=== PATIENT | female | born 1975 | race Caucasian/White ===

== ENCOUNTER 2016-09-04 14:55 | Emergency (ER) | payer OTHER ==
[2016-09-04 15:16] VITALS: BP 129/71
[2016-09-04] MEDS ORDERED: Aspirin Low Dose CHEW TAB* 81 MG PO ONE (15:40)
[2016-09-04 16:12] LABS: Hematocrit 40 % (35-47); Hemoglobin 13.7 g/dl (12.0-16.0); Mean Corpuscular HGB Conc 34 g/dl (31-36); Mean Corpuscular Hemoglobin 31 pg (27-31); Mean Corpuscular Volume 92 fL (80-97); Mean Platelet Volume 9 um3 (7.4-10.4); Red Blood Count 4.39 10^6/ul (4.0-5.4); Red Cell Distribution Width 14 % (10.5-15); White Blood Count 12.1 10^3/ul (3.5-10.8)
[2016-09-04 16:28] LABS: Troponin I 0.01 ng/mL (<0.04)
[2016-09-04 16:36] LABS: TSH (Thyroid Stimulating Horm) 1.27 mcIU/mL (0.34-5.60)
[2016-09-04 16:41] LABS: ALT 12 U/L (7-52); AST 12 U/L (13-39); Albumin 4.7 g/dL (3.2-5.2); Alkaline Phosphatase 57 U/L (34-104); Anion Gap 6 mmol/L (2-11); BUN/Creatinine Ratio 12.8 (8-20); Blood Urea Nitrogen 11 mg/dL (6-24); CO2 Carbon Dioxide 23 mmol/L (22-32); Calcium 10.2 mg/dL (8.6-10.3); Chloride 107 mmol/L (101-111); EGFR African American 93.1 (>60); EGFR Non-African American 72.4 (>60); Globulin 3.2 g/dL (2-4); Glucose 139 mg/dL (70-100); Potassium 3.4 mmol/L (3.5-5.0); Sodium 136 mmol/L (133-145); Total Protein 7.9 g/dL (6.4-8.9)
[2016-09-04 17:25] LABS: T4 7.39 g/dL (6.09-12.23)
--- NOTE | 2016-09-04 22:35 | ED ---
Mitul Lay Adam, scribed for Ceferino Brewer MD on 09/04/16 at 1542 . Palpitations / Dysrhythmia - HPI Summary HPI Summary: Pt is a 40 year old female presenting with palpitations and tachycardia. She states that she took her regular dose of methotrexate today (which she has been on for 1 year with no issues) and several minutes later her HR went up and she developed redness on her upper chest. She also c/o abdominal pain. Pt had a similar experience on 08/25 when she took her first shot of Humira and experienced what seemed to be a reaction several minutes later, with tachycardia and palpitations which resolved spontaneously. She did not take Humira today. PMHx of HTN and RA. Negative tobacco use. FMHx of RA, HTN, and CA. EMS notes reviewed; HR went from 111 to 132 BPM. It was 101 BPM upon arrival. - History of Current Complaint Chief Complaint: EDGeneral Hx Obtained From: Patient Onset/Duration: Sudden Onset, Lasting Hours, Still Present Timing: Constant Severity Initially: Moderate Severity Currently: Moderate Character: Fast Aggravating: Medication - Set on after taking methotrexate. Alleviating: Nothing - Allergy/Home Medications Allergies/Adverse Reactions: Allergies Allergy/AdvReac Type Severity Reaction Status Date / Time Sulfamethoxazole Allergy Severe See Comment Verified 05/31/16 19:49 w/Trimethoprim [From Bactrim] Bee stings Allergy Anaphylatic Uncoded 06/10/16 14:58 Shock PMH/Surg Hx/FS Hx/Imm Hx Cardiovascular History: Reports: Hx Hypertension - Surgical History Surgery Procedure, Year, and Place: 3 C-SECT. FINGER JOINT REPLACEMENT. RIGHT KNEE SX. VEIN STRIPPING IN LEFT LEG. Adenoids Infectious Disease History: No Infectious Disease History: Denies: Hx Clostridium Difficile, Hx Hepatitis, Hx Human Immunodeficiency Virus (HIV), Hx of Known/Suspected MRSA, Hx Shingles, Hx Tuberculosis, Hx Known/ Suspected VRE, Hx Known/Suspected VRSA, History Other Infectious Disease, Traveled Outside the [place] in Last 30 Days - Family History Known Family History: Positive: Hypertension, Other - RA, CA - Social History Occupation: Employed Full-time - Homemaker Lives: With Family - Alcohol Use: Rare Hx Substance Use: No Substance Use Type: Reports: None Hx Tobacco Use: No Smoking Status (MU): Never Smoked Tobacco Review of Systems Positive: Palpitations Positive: Abdominal Pain Positive: Rash - Upper chest Positive: Anxious All Other Systems Reviewed And Are Negative: Yes Physical Exam - Summary Physical Exam Summary: General: Alert, pleasant. Neck: Soft, supple, no JVD. HEENT: KANA, no uvula or soft palate swelling. Heart: Tachycardia at 124 BPM. On arrival into room it was 141 BPM. Abdomen: Soft, flat. Calves: Soft, nontender, no pitting edema. Lungs: Clear to auscultation. Neuro: Alert and oriented x3. Psych: Anxious Triage Information Reviewed: Yes Vital Signs On Initial Exam: Initial Vitals Temp Pulse Resp BP Pulse Ox 98.2 F 101 16 129/71 99 09/04/16 15:11 09/04/16 15:11 09/04/16 15:11 09/04/16 15:11 09/04/16 15:11 Vital Signs Reviewed: Yes Diagnostics - Vital Signs Vital Signs Temp Pulse Resp BP Pulse Ox 09/04/16 15:11 98.2 F 101 16 129/71 99 - Laboratory Lab Results: Lab Results 09/04/16 09/04/16 09/04/16 Range/Units 15:50 15:50 15:50 WBC 12.1 H (3.5-10.8) 10^3/ul RBC 4.39 (4.0-5.4) 10^6/ul Hgb 13.7 (12.0-16.0) g/dl Hct 40 (35-47) % MCV 92 (80-97) fL MCH 31 (27-31) pg MCHC 34 (31-36) g/dl RDW 14 (10.5-15) % Plt Count 346 (150-450) 10^3/ul MPV 9 (7.4-10.4) um3 Neut % (Auto) 64.7 (38-83) % Lymph % (Auto) 25.5 (25-47) % Sabine % (Auto) 8.5 (1-9) % Eos % (Auto) 0.8 (0-6) % Baso % (Auto) 0.5 (0-2) % Absolute Neuts (auto) 7.8 H (1.5-7.7) 10^3/ul Absolute Lymphs (auto) 3.1 (1.0-4.8) 10^3/ul Absolute Monos (auto) 1.0 H (0-0.8) 10^3/ul Absolute Eos (auto) 0.1 (0-0.6) 10^3/ul Absolute Basos (auto) 0.1 (0-0.2) 10^3/ul Absolute Nucleated RBC 0 10^3/ul Nucleated RBC % 0 Sodium 136 (133-145) mmol/L Potassium 3.4 L (3.5-5.0) mmol/L Chloride 107 (101-111) mmol/L Carbon Dioxide 23 (22-32) mmol/L Anion Gap 6 (2-11) mmol/L BUN 11 (6-24) mg/dL Creatinine 0.86 (0.51-0.95) mg/dL Est GFR ( Amer) 93.1 (>60) Est GFR (Non-Af Amer) 72.4 (>60) BUN/Creatinine Ratio 12.8 (8-20) Glucose 139 H (70-100) mg/dL Lactic Acid 2.6 H* (0.5-2.0) mmol/L Calcium 10.2 (8.6-10.3) mg/dL Total Bilirubin 0.40 (0.2-1.0) mg/dL AST 12 L (13-39) U/L ALT 12 (7-52) U/L Alkaline Phosphatase 57 (34-104) U/L Troponin I 0.01 (<0.04) ng/mL Total Protein 7.9 (6.4-8.9) g/dL Albumin 4.7 (3.2-5.2) g/dL Globulin 3.2 (2-4) g/dL Albumin/Globulin Ratio 1.5 (1-3) TSH 1.27 (0.34-5.60) mcIU/mL Thyroxine (T4) 7.39 (6.09-12.23) g/dL Beta HCG, Quant < 0.60 mIU/mL Result Diagrams: 09/04/16 15:50 09/04/16 15:50 Lab Statement: Any lab studies that have been ordered have been reviewed, and results considered in the medical decision making process. - EKG 15:20 Cardiac Rate: Tachycardia - 119 BPM EKG Rhythm: Sinus Tachycardia EKG Interpretation: No ST changes - Additional Comments Diagnostic Additional Comments: Troponin I - 0.01 Lactic Acid - 2.6 Course/Dx - Course Assessment/Plan: This is her second episode of feeling flushed, a little nauseous, and having racing heart and tachycardia. Her HR slowly increased and slowly resolved without intervention. I don't believe this is an arrhythmia. There is also no evidence of an allergic reaction such as hives, throat swelling , wheezing, or angioedema. There is a good chance that she is having a side effect potentially to the Humira and then her fear is causing escalation of her symptoms. By simply talking to her for 10 minutes in the room, her HR went from 140 to 108 BPM. Work-up has been normal. We have considered a cardiac event such as ischemia but there were no ischemic equivalents such as discomfort at any time. She has simply been having nausea and feeling flushed without diaphoresis. I believe she is safe for discharge. She will talk to her doctors about whether or not Humira should be continued. - Diagnoses Provider Diagnoses: Tachycardia Discharge - Discharge Plan Condition: Good Disposition: HOME Patient Education Materials: Atrial Tachycardia (ED) Referrals: DYLAN Ramos [Primary Care Provider] - The documentation as recorded by the Mitul casas Adam accurately reflects the service I personally performed and the decisions made by me, Ceferino Brewer MD.
== END 2016-09-04 17:41 | disposition home or self-care (01) ==
LOC: ED 14:55
DX: R00.2 Palpitations (principal); R00.0 Tachycardia, unspecified; R10.9 Unspecified abdominal pain; R21 Rash and other nonspecific skin eruption
CPT/HCPCS: 36415; 80053; 83605; 84436; 84443; 84484; 84702; 85025; 93005; 99284; A9270-GY

== ENCOUNTER 2017-04-03 14:54 | Emergency (ER) | payer OTHER ==
[2017-04-03] MEDS ORDERED: methylPREDNISolone 125 MG* 2 ML VIAL IV ONE (15:52)
[2017-04-03] MEDS ORDERED: Famotidine IV* 10 MG/ML 2 ML (20 mg) IV SLOW PU ONE (15:52)
[2017-04-03 18:04] VITALS: BP 156/82
--- NOTE | 2017-04-04 12:23 | ED ---
Young Lay Nikita, scribed for Brad Gonzalez MD on 04/03/17 at 1534 . Allergic Reaction/Systemic - HPI Summary HPI Summary: Pt is a 41 y/o F BIBA who presents to ED c/o allergic reaction s/p bee/wasp sting. At approximately 1400 today she was stung in the L index finger. After sting, pts skin became erythematous, described as "blotching" up her LUE. 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 Currently, pt reports the erythema is resolved. Additionally c/o feeling anxious. Prior reactions to strings consisted of becoming "blotchy." - History of Current Complaint Chief Complaint: EDAllergicReaction Time Seen by Provider: 04/03/17 15:00 Hx Obtained From: Patient Hx Last Menstrual Period: 05/22/16 Onset/Duration: Started hours ago Severity Currently: None Pain Intensity: 0 Pain Scale Used: 0-10 Numeric Location: Discrete @ - LUE Character: Hives - Erythematous "blotching" Aggravating Factor(s): Nothing Alleviating Factor(s): Antihistamines - 125 mg Benadryl, Epinephrine Associated Signs And Symptoms: Positive: Other: - Anxiety - Allergies/Home Medications Allergies/Adverse Reactions: Allergies Allergy/AdvReac Type Severity Reaction Status Date / Time Sulfamethoxazole Allergy Severe See Comment Verified 05/31/16 19:49 w/Trimethoprim [From Bactrim] Bee stings Allergy Anaphylatic Uncoded 06/10/16 14:58 Shock PMH/Surg Hx/FS Hx/Imm Hx Cardiovascular History: Reports: Hx Hypertension Musculoskeletal History: Reports: Hx Rheumatoid Arthritis - Surgical History Surgery Procedure, Year, and Place: 3 C-SECT. FINGER JOINT REPLACEMENT. RIGHT KNEE SX. VEIN STRIPPING IN LEFT LEG. Adenoids Infectious Disease History: Yes Infectious Disease History: Denies: Hx Clostridium Difficile, Hx Hepatitis, Hx Human Immunodeficiency Virus (HIV), Hx of Known/Suspected MRSA, Hx Shingles, Hx Tuberculosis, Hx Known/ Suspected VRE, Hx Known/Suspected VRSA, History Other Infectious Disease, Traveled Outside the [place] in Last 30 Days - Family History Known Family History: Positive: Hypertension, Other - RA, CA - Social History Alcohol Use: Rare Hx Substance Use: No Substance Use Type: Reports: None Hx Tobacco Use: No Smoking Status (MU): Never Smoked Tobacco Review of Systems Positive: Other - LUE erythema described as "blotching" - resolved Positive: Anxious All Other Systems Reviewed And Are Negative: Yes Physical Exam Triage Information Reviewed: Yes Vital Signs On Initial Exam: Initial Vitals Temp Pulse Resp BP Pulse Ox 99.4 F 87 17 167/87 100 04/03/17 15:05 04/03/17 15:05 04/03/17 15:05 04/03/17 15:05 04/03/17 15:05 Vital Signs Reviewed: Yes Appearance: Positive: Well-Appearing, No Pain Distress Skin: Positive: Warm, Dry, Other - Slightly flushed Head/Face: Positive: Normal Head/Face Inspection Eyes: Positive: Normal ENT: Positive: Normal ENT inspection Neck: Positive: Supple, Nontender Respiratory/Lung Sounds: Positive: Clear to Auscultation, Breath Sounds Present Cardiovascular: Positive: RRR Abdomen Description: Positive: Nontender, Soft Bowel Sounds: Positive: Present Musculoskeletal: Positive: Other - Slightly tremulous Neurological: Positive: Normal Psychiatric: Positive: Normal, Affect/Mood Appropriate Diagnostics - Vital Signs Vital Signs Temp Pulse Resp BP Pulse Ox 04/03/17 15:05 99.4 F 87 17 167/87 100 - Laboratory Lab Statement: Any lab studies that have been ordered have been reviewed, and results considered in the medical decision making process. Re-Evaluation - Re-Evaluation First Eval Re-Evaluation Time: 17:44 Change: Improved Allergic Reaction Course/Dx - Course Course Of Treatment: Ms. Patel presented with urticaria after a bee sting and was treated and observed with continued improvement. - Diagnoses Provider Diagnoses: Allergic reaction Discharge - Discharge Plan Condition: Stable Disposition: HOME Patient Education Materials: General Allergic Reaction (ED) Referrals: DYLAN Ramos [Primary Care Provider] - 3 Days Additional Instructions: Return to ED immediately for any returning or worsening symptoms. The documentation as recorded by the Young casas Nikita accurately reflects the service I personally performed and the decisions made by Carlos qiu Richard L, MD.
== END 2017-04-03 18:03 | disposition home or self-care (01) ==
LOC: ED 14:54
DX: F41.9 Anxiety disorder, unspecified (principal); T78.40XA Allergy, unspecified, initial encounter; X58.XXXA Exposure to other specified factors, initial encounter; Y92.9 Unspecified place or not applicable; Z86.79 Personal history of other diseases of the circulatory system
CPT/HCPCS: 96374; 96375; 99283; J2930

== ENCOUNTER 2018-03-11 18:35 | Emergency (ER) | payer OTHER ==
[2018-03-11 18:54] VITALS: BP 159/95
[2018-03-11] MEDS ORDERED: Ketorolac INJ* 30 MG/ML 1 ML VIAL IM ONE (19:25)
--- NOTE | 2018-03-11 19:27 | ED ---
Neck Pain - HPI Summary HPI Summary: 42-year-old female presents with neck pain for the past week. She states she slept wrong and woke up with the pain. She states that it seemed be doing better but yesterday became worse. She states it is only located on the left neck. She states it seems to radiate to her left ear. She denies any change in hearing. She denies any weakness. No numbness or tingling. No midline tenderness. She denies any history of neck pain. She denies any fevers. No recent illness. No headache. She tried some Aleve with relief. Medical conditions have high blood pressure. - History of Current Complaint Chief Complaint: UCUpperExtremity Stated Complaint: NECK PAIN Time Seen by Provider: 03/11/18 19:12 Hx Last Menstrual Period: 02/23/18 Pain Intensity: 8 - Allergies/Home Medications Allergies/Adverse Reactions: Allergies Allergy/AdvReac Type Severity Reaction Status Date / Time sulfamethoxazole Allergy Altered Verified 03/11/18 18:54 [From Bactrim] Mental Status trimethoprim [From Bactrim] Allergy Altered Verified 03/11/18 18:54 Mental Status Bee stings Allergy Anaphylatic Uncoded 06/10/16 14:58 Shock Home Medications: Home Medications Metoprolol Succinate 25 mg PO DAILY 03/11/18 [History Confirmed 03/11/18] Sertraline* [Zoloft*] 75 mg PO DAILY 03/11/18 [History Confirmed 03/11/18] amLODIPine TAB* [Norvasc 5 mg TAB*] 5 mg PO DAILY 03/11/18 [History Confirmed ] PMH/Surg Hx/FS Hx/Imm Hx Endocrine/Hematology History: Denies: Hx Diabetes, Hx Thyroid Disease Cardiovascular History: Reports: Hx Hypertension Respiratory History: Denies: Hx Asthma, Hx Chronic Obstructive Pulmonary Disease (COPD) GI History: Denies: Hx Ulcer Musculoskeletal History: Reports: Hx Rheumatoid Arthritis - Surgical History Surgery Procedure, Year, and Place: 3 C-SECT. FINGER JOINT REPLACEMENT. RIGHT KNEE SX. VEIN STRIPPING IN LEFT LEG. Adenoids Infectious Disease History: No Infectious Disease History: Denies: Hx Clostridium Difficile, Hx Hepatitis, Hx Human Immunodeficiency Virus (HIV), Hx of Known/Suspected MRSA, Hx Shingles, Hx Tuberculosis, Hx Known/ Suspected VRE, Hx Known/Suspected VRSA, History Other Infectious Disease, Traveled Outside the [place] in Last 30 Days - Family History Known Family History: Positive: Hypertension, Other - RA, CA - Social History Alcohol Use: Rare Hx Substance Use: No Substance Use Type: Reports: None Hx Tobacco Use: No Smoking Status (MU): Never Smoked Tobacco Review of Systems Negative: Fever Negative: Chest Pain Negative: Shortness Of Breath Positive: Myalgia - neck pain All Other Systems Reviewed And Are Negative: Yes Physical Exam Triage Information Reviewed: Yes Vital Signs On Initial Exam: Initial Vitals Temp Pulse Resp BP Pulse Ox 99.0 F 60 19 159/95 99 03/11/18 18:51 03/11/18 18:51 03/11/18 18:51 03/11/18 18:51 03/11/18 18:51 Vital Signs Reviewed: Yes Appearance: Positive: Well-Appearing Skin: Positive: Warm, Dry Head/Face: Positive: Normal Head/Face Inspection Eyes: Positive: Normal, Conjunctiva Clear ENT: Positive: Normal ENT inspection, Pharynx normal, TMs normal Neck: Positive: Other: - tenderness left side of neck, no midline tenderness, tenderness over trapezius, limited ROM neck with stiffness Respiratory/Lung Sounds: Positive: Clear to Auscultation, Breath Sounds Present Cardiovascular: Positive: Normal, RRR Musculoskeletal: Positive: Normal, Strength/ROM Intact - arms, Other - good pulses Neurological: Positive: Normal, Reflexes Intact - biceps Psychiatric: Positive: Normal Diagnostics - Vital Signs Vital Signs Temp Pulse Resp BP Pulse Ox 03/11/18 18:51 99.0 F 60 19 159/95 99 - Laboratory Lab Statement: Any lab studies that have been ordered have been reviewed, and results considered in the medical decision making process. Neck Course/Dx - Course Course Of Treatment: 42-year-old female presents with neck pain for the past week. She states she slept wrong and woke up with the pain. She states that it seemed be doing better but yesterday became worse. She states it is only located on the left neck. She states it seems to radiate to her left ear. She denies any change in hearing. She denies any weakness. No numbness or tingling. No midline tenderness. She denies any history of neck pain. She denies any fevers. No recent illness. No headache. She tried some Aleve with relief. Medical conditions have high blood pressure. On exam has tenderness over left sided neck. No midline tenderness. Full range of motion of arms. Will have start muscle relaxer at home. patient has dx of htn so can follow up with primary about blood pressure and about neck pain. Patient understands agrees with plan. - Diagnoses Differential Dx/HQI/PQRI: Positive: Dystonia, Sprain, Strain Provider Diagnoses: Neck pain, Hypertension Discharge - Sign-Out/Discharge Documenting (check all that apply): Patient Departure - Discharge Plan Condition: Good Disposition: HOME Prescriptions: Cyclobenzaprine TAB* [Flexeril 10 MG TAB*] 10 mg PO BID PRN #10 tab PRN Reason: Pain Patient Education Materials: Cervical Strain (ED) [place]errals: [facility] [place] [facility] [place]] Additional Instructions: Take muscle relaxers twice a day, start with at night as may make drowsy Use ibuprofen or Tylenol for pain every 6 hours heat area, move as much as possible Follow up with primary within 5 days Return to ED if develop any new or worsening symptoms - Billing Disposition and Condition Condition: GOOD Disposition: Home
== END 2018-03-11 19:40 | disposition home or self-care (01) ==
LOC: UCEAST 18:35
DX: M54.2 Cervicalgia (principal); M06.9 Rheumatoid arthritis, unspecified; I10 Essential (primary) hypertension; Z88.2 Allergy status to sulfonamides; Z79.899 Other long term (current) drug therapy; Z91.030 Bee allergy status
CPT/HCPCS: 99212; G0463; J1885

== ENCOUNTER 2018-10-30 14:39 | Emergency (ER) | payer OTHER ==
[2018-10-30 15:13] VITALS: BP 143/77
--- NOTE | 2018-10-30 16:03 | UC ---
Complaint Female HPI - HPI Summary HPI Summary: 43 y/o female presents to the urgent care c/o urinary urgency and burning since 10/28/18. Pt reports she has been drinking fluids, but she thinks she has a UTI since today she started to develop Rt lower back pain. Pain is 3/10. Pt w / Hx of UTI's in the past. Pt denies fever, flank pain, Hx of kidney stones, abdominal pain, SOB, chest pain, dizziness, N/V/d. Hs of STD's or vaginal discharge. - History Of Current Complaint Chief Complaint: UCGU Stated Complaint: POSS UTI Time Seen by Provider: 10/30/18 16:01 Hx Obtained From: Patient Hx Last Menstrual Period: 2 wks ago ?: No Onset/Duration: Gradual Onset, Lasting Days - 2 days, Still Present, Worse Since - today Timing: Intermittent Severity Initially: Mild Severity Currently: Moderate Pain Intensity: 6 Pain Scale Used: 0-10 Numeric Character: Burning Aggravating Factor(s): Urination Alleviating Factor(s): Nothing Associated Signs And Symptoms: Positive: Back Pain - RT lower back pain. Negative: Fever, Vaginal Bleeding/Discharge, Vaginal Discharge, Vomiting(# Of Episodes =), Genital Swelling, Genital Blisters - Risk Factors Ectopic Risk Factor: Negative Ovarian Torsion Risk Factor: Negative - Allergies/Home Medications Allergies/Adverse Reactions: Allergies Allergy/AdvReac Type Severity Reaction Status Date / Time sulfamethoxazole Allergy Altered Verified 10/30/18 15:13 [From Bactrim] Mental Status trimethoprim [From Bactrim] Allergy Altered Verified 10/30/18 15:13 Mental Status Bee stings Allergy Anaphylatic Uncoded 10/30/18 15:13 Shock PMH/Surg Hx/FS Hx/Imm Hx Previously Healthy: Yes Cardiovascular History: Hypertension - Surgical History Surgical History: Yes Surgery Procedure, Year, and Place: 3 C-SECT. FINGER JOINT REPLACEMENT. RIGHT KNEE SX. VEIN STRIPPING IN LEFT LEG. Adenoids - Family History Known Family History: Positive: Hypertension, Other - RA, CA - Social History Occupation: Employed Full-time Lives: With Family Alcohol Use: Rare Substance Use Type: Prescribed Smoking Status (MU): Never Smoked Tobacco Review of Systems All Other Systems Reviewed And Are Negative: Yes Constitutional: Positive: Negative Skin: Positive: Negative Eyes: Positive: Negative ENT: Positive: Negative Respiratory: Positive: Negative Cardiovascular: Positive: Negative Gastrointestinal: Positive: Negative Genitourinary: Positive: Dysuria, Frequency, Urgency Motor: Positive: Negative Neurovascular: Positive: Negative Musculoskeletal: Positive: Negative Neurological: Positive: Negative Psychological: Positive: Negative Is Patient Immunocompromised?: No Physical Exam - Summary Physical Exam Summary: VITAL SIGNS: Reviewed. GENERAL: Patient is a well developed and nourished female who is sitting comfortable in the examining table. Patient is not in any acute respiratory distress. HEAD AND FACE: No signs of trauma. No ecchymosis, hematomas or skull depressions. No sinus tenderness. EYES: PERRLA, EOMI x 2, No injected conjunctiva, clear watery eyes, no nystagmus. No photophobia. EARS: Hearing grossly intact. Ear canals and tympanic membranes are within normal limits. MOUTH: pharynx with no erythema, no exudates,no palatal petechiae. no B/L tonsillar enlargement Uvula in midline. NECK: Supple, trachea is midline, no lymphadenopathy, no JVD, no carotid bruit, no c-spine tenderness, neck with full ROM. CHEST: Symmetric, no tenderness at palpation LUNGS: Clear to auscultation bilaterally. No wheezing or crackles. CVS: Regular rate and rhythm, S1 and S2 present, no murmurs or gallops appreciated. ABDOMEN: Soft, non-tender. No signs of distention. No rebound no guarding, and no masses palpated. Bowel sounds are normal. BACK:no scoliosis or lesions, non tender to palpation, No B/L CVA tenderness EXTREMITIES: FROM in all major joints, no edema, no cyanosis or clubbing. NEURO: Alert and oriented x 3. No acute neurological deficits. Speech is normal and follows commands. SKIN: Dry and warm Triage Information Reviewed: Yes Vital Signs: Initial Vital Signs Temp 98.9 F 10/30/18 15:11 Pulse 77 10/30/18 15:11 Resp 12 10/30/18 15:11 BP 143/77 10/30/18 15:11 Pulse Ox 100 10/30/18 15:11 Complaint Female Dx - Course Course Of Treatment: 43 y/o female presents to the urgent care c/o urinary urgency and burning since 10/28/18. Pt reports she has been drinking fluids, but she thinks she has a UTI since today she started to develop Rt lower back pain. Pain is 3/10. Pt w / Hx of UTI's in the past. Pt denies fever, flank pain, Hx of kidney stones, abdominal pain, SOB, chest pain, dizziness, N/V/d. Hs of STD's or vaginal discharge. Hx obtained. PE: WNL. UA results: Blood 3+, Leukoesterase 1+, Nitrates positive. Pt allergic to Bactrim PO. Pt Rx Ciprofloxacin PO x 7 days. Pyridium 100mg PO TID x 2 days. Advised to increase fluid intake. Urine sent for culture if any abnormality Pt will be notified for further treatment. Pt advised If symptoms do not improve to return to the urgent care or f/u with PCP. Pt understood and agreed. Left the clinic ambulating. - Differential Dx/Diagnosis Differential Diagnosis/HQI/PQRI: Cervicitis, Pelvic Inflammatory Disease, Renal Colic, Ureteral Stone, Urinary Tract Infection, Other - pyelonephritis Provider Diagnosis: UTI (urinary tract infection), Dysuria, Uncontrolled hypertension Discharge - Sign-Out/Discharge Documenting (check all that apply): Patient Departure - D/C home All imaging exams completed and their final reports reviewed: No Studies - Discharge Plan Condition: Stable Disposition: HOME Prescriptions: Ciprofloxacin TAB* [Cipro 500 MG TAB*] 500 mg PO BID #14 tab Phenazopyridine TAB* [Pyridium 100 mg TAB*] 100 mg PO TID #6 tab Patient Education Materials: Urinary Tract Infection in Women (ED) Referrals: [facility] [place] [facility] [place] [facility] [Outside] - 3 Days Additional Instructions: 1- Please take ciprofloxacin PO x 7 days. Pyridium 100 mg PO TID x 2 days to alleviate urinary symptoms. Increase increase fluid intake. drink cranberry juice. 2-Urine sent for culture if any abnormality, you will be notified for further treatment. 3-If symptoms do not improve please return to the urgent care or f/u with PCP in 3 days for further management 4- Your BP is elevated today. please decrease salt in your diet, monitor BP and if it continues to be elevated please f/u with your PCP for further management. - Billing Disposition and Condition Condition: STABLE Disposition: Home
== END 2018-10-30 16:20 | disposition home or self-care (01) ==
LOC: UCEAST 14:39
DX: N39.0 Urinary tract infection, site not specified (principal); R30.0 Dysuria; I10 Essential (primary) hypertension; Z88.2 Allergy status to sulfonamides; Z91.030 Bee allergy status; Z88.1 Allergy status to other antibiotic agents
CPT/HCPCS: 81003; 87077; 87086; 87186; 99212; G0463